=== PATIENT | female | born 1995 | race Caucasian/White ===

== ENCOUNTER 2017-08-25 17:04 | Emergency (ER) | payer SELFPAY ==
[~2017-08-25] VITALS: Ht 165.1 cm; Wt 50.0 kg
[2017-08-25 17:13] VITALS: BP 110/66; PULSE 84; TEMP 99.1
[2017-08-25 18:23] LABS: COLLECTION METHOD CLEAN CATCH
[2017-08-25 18:37] LABS: AMORPHOUS CRYSTAL Present /uL; PH 7 (5-8); SQUAMOUS EPITHELIAL 20-50 /hpf; URINE APPEARANCE Cloudy; URINE BACTERIA Rare /hpf; URINE BILIRUBIN Negative (NEGATIVE); URINE BLOOD Negative (NEGATIVE); URINE COLOR Yellow; URINE GLUCOSE Negative (NEGATIVE); URINE KETONE Negative (NEGATIVE); URINE LEUKOCYTE ESTERASE 3+ (NEGATIVE); URINE NITRATE Negative (NEGATIVE); URINE PROTEIN(semi-quant) Negative (NEGATIVE); URINE UROBILINOGEN Negative (NEGATIVE)
[2017-08-25] MEDS ORDERED: MACROBID 1100 MG/CAP PO (19:12)
== END 2017-08-25 19:17 | disposition home or self-care (01) ==
LOC: COL.ER 17:04
PROVIDERS: Emergency Medicine
DX: O23.12 Infections of bladder in pregnancy, second trimester (principal); Z3A.16 16 weeks gestation of pregnancy